=== PATIENT | male | born 1980 | race Caucasian/White ===

== ENCOUNTER 2016-10-29 09:32 | Inpatient (IN) | payer OTHER ==
--- NOTE | ~2016-10-29 | TEE ---
Transesophageal Echocardiogram [facility] [address] [place]. [address] NAME: DOTTIE MORALES : 80 STATUS : ADM IN PAT#: [id number] AGE: 36 ADM/REG DATE : 10/29/16 MR#: [id number] REPORT SERV DATE: 11/02/16 DICTATED BY: GENO NUNEZ DATE: 11/02/16 REPORT STATUS : Draft TRANSCRIBED BY: SAIGE DATE: 11/02/16 REFERRING REASON: Evaluation of cardiac valves in the setting of MRSA bacteremia and history of IV drug use with evidence of a septic emboli into the lungs. The risks and benefits of procedure were explained to the patient. He agreed to proceed. Vital signs were closely monitored during the procedure and remained stable. The patient was sedated with propofol per Anesthesia. MELYSSA probe was inserted on the first attempt without any difficulties. No complications. FINDINGS: 1. A small mobile echodensity measuring 0.7 cm attached around the tricuspid valve leaflets resembling vegetation. There is moderate tricuspid valve regurgitation with eccentric jet towards the atrial septum. 2. Prominent mildly mobile echodensity measuring in the long axis up to 2 cm, which seems to be attached to the area of the IVC likely representing a prominent eustachian valve. 3. Normal LV size and systolic function. Estimated ejection fraction of 55%. 4. Normal RV size and systolic function. 5. Mitral valve opens adequately without evidence of mobile echodensity with only trace regurgitation. Multiple views obtained. 6. Aortic valve is tricuspid with small Lambl's excrescence without clear evidence of vegetation. Trace aortic valve regurgitation present. 7. Tricuspid valve opens adequately with moderate regurgitation and eccentric jet. Mobile echodensity as described above noted. 8. Grossly normal pulmonic valve without evidence of regurgitation. 9. No evidence of left atrial or left atrial appendage thrombus. Multiple views obtained. Normal left atrial appendage outflow velocities noted. 10.Normally connected pulmonary veins with normal pulmonary vein flow. 11.No evidence of PFO by color Doppler. 12.Normal transgastric images revealing normal LV size and systolic function. 13.No evidence of atherosclerotic process in the descending or ascending aorta. 14.No evidence of pericardial effusion. CONCLUSION: 1. SMALL MOBILE ECHODENSITY MEASURING UP TO 0.7 CM ATTACHED TO THE TRICUSPID VALVE RESEMBLING VEGETATION WITH SOME MODERATE REGURGITATION. 2. PROMINENT ECHODENSITY ATTACHED TO THE IVC LIKELY RESEMBLING EUSTACHIAN VALVE ALSO NOTED. 3. NO CLEAR EVIDENCE OF MOBILE ECHODENSITIES RESEMBLING VEGETATION OR ANY OTHER CARDIAC VALVES. 4. NORMAL LV SIZE AND SYSTOLIC FUNCTION. 5. FINDINGS COMMUNICATED TO DR. BACH. GUILLERMO/SAIGE Geno Nunez M.D. Transesophageal Echocardiogram [address] [address] NAME: DOTTIE MORALES : 80 STATUS : ADM IN [facility]#: [id number] AGE: 36 ADM/REG DATE : 10/29/16 MR#: [id number] REPORT SERV DATE: 11/02/16 DICTATED BY: GENO NUNEZ DATE: 11/02/16 REPORT STATUS : Draft TRANSCRIBED BY: SAIGE DATE: 11/02/16 / [id number] CC: Richi Bach Jr., M.D.
--- NOTE | ~2016-10-29 | OP ---
Record Of Operation [facility] [address] [place]. [address] NAME: DOTTIE MORALES : 80 STATUS : ADM IN [facility]#: [id number] AGE: 36 ADM/REG DATE : 10/29/16 MR#: [id number] REPORT SERV DATE: 11/06/16 DICTATED BY: LALIT BACH JR. 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 NAME OF OPERATION: Therapeutic bronchoscopy, bronchoalveolar lavage right lung, left thoracoscopy with complete decortication, and intercostal nerve block. SURGEON: Dr. Lalit Bach. RESIDENT SURGEON: Dr. Mati Ko. NEEDLEMAKER: Noemy Ordoñez. ANESTHESIA: General endotracheal. FINDINGS: The patient was noted to have abundant mucous secretions that required therapeutic bronchoscopy. We sent a BAL from the right lung given that there was a lot of purulent material coming from this right lung. On thoracoscopy, we found a fairly trapped left lung. There was a loculated serosanguineous fluid collection in the lateral aspect of the chest. We were able to get this out and get the lung to re-expand. There was a lot of inflammation and bleeding within the chest cavity. Cultures were also sent from the pleural effusion. DETAILS OF OPERATION: After adequate general anesthesia, the patient was intubated. Bronchoscopy was performed noting the above findings. A therapeutic bronchoscopy was required. Bronchioalveolar lavage of the right lung was performed. Cultures were sent. The patient was then intubated with a left-sided double-lumen endotracheal tube. He was then positioned in the right lateral decubitus position where the left chest was prepped and draped in a routine sterile fashion. A small incision was made overlying the lower intercostal space. Through a single incision site, the above findings noted. We were able to get the pocket entered and the fluid evacuated. The chest was fairly inflamed. We had multiple liters of irrigation performed. Decortication was performed. We were able to get the lung to reasonably re-expand. We placed a 32-German chest tube posteriorly. Lung was reinflated. The trocar sites were closed with running Vicryl sutures. The skin was closed with running monofilament suture. A Dermabond dressing was applied and the procedure was terminated at this point. The patient tolerated the procedure well and was taken back to the recovery room in stable condition. Record Of Operation [place] [id number] [facility] [place]. [address] NAME: DOTTIE MORALES : 80 STATUS : ADM IN [facility]#: [id number] AGE: 36 ADM/REG DATE : 10/29/16 MR#: [id number] REPORT SERV DATE: 11/06/16 DICTATED BY: LALIT BACH JR. DATE: 11/06/16 REPORT STATUS : Draft TRANSCRIBED BY: SAIGE DATE: 11/06/16 FLAVIA/SAIGE Lalit Bach Jr., M.D. / [id number] CC: Odilon Hester Jr., M.D.
--- NOTE | ~2016-10-29 | CN ---
Consultation Report [facility] [address] [place]. [address] NAME: DOTTIE MORALES : 80 STATUS : ADM IN [facility]#: [id number] AGE: 36 ADM/REG DATE : 10/29/16 MR#: [id number] REPORT SERV DATE: 10/29/16 DICTATED BY: BREN LOPEZ DATE: 10/29/16 REPORT STATUS : Draft TRANSCRIBED BY: MODL DATE: 10/29/16 INFECTIOUS DISEASE CONSULTATION DATE OF CONSULTATION: REASON FOR REFERRAL: Evaluation and treatment of MRSA sepsis. HISTORY OF PRESENT ILLNESS: The patient is a 36-year-old male, who has a history of pancreatitis, hepatitis C, a history of IV drug abuse most recently with crystal meth, he says that his last time of injecting himself was two weeks ago. Just over a week ago, he began feeling ill with malaise, abdominal pain that became increasingly severe and in retrospect, was likely some pleuritic chest pain that was being referred into his abdomen. At that time, he was initially seen in the emergency room in [place]. He was not complaining of any fevers. He was treated symptomatically, but came back and was admitted since he appeared more toxic on 10/23. Cultures were taken. He was found to have blood cultures positive for gram-positive cocci and so vancomycin was begun. It proved to be methicillin-resistant Staph aureus on the cultures, two of two positive. He also had a CT scan of his chest that showed multiple bilateral infiltrates, suggestive of septic emboli. A transthoracic echocardiogram did not show any obvious valvular lesions, but right side of the heart was not visualized well. He was transferred here for further care. His imaging has also revealed a pleural effusion on the right side and a possible empyema. PAST MEDICAL HISTORY: Otherwise, unremarkable. MEDICATIONS: He is on vancomycin. ALLERGIES: HE HAS NO KNOWN ANTIMICROBIAL ALLERGIES. SOCIAL HISTORY: He is unemployed, using drugs as previously mentioned. Previously smoked, but has stopped and now chews tobacco. FAMILY HISTORY: Noncontributory. PHYSICAL EXAMINATION: GENERAL: He is groggy with pain medicine, but moaning in pain when he is awakened throughout the interview, but was able to wake up enough to answer questions for me. He is oriented. VITAL SIGNS: Temperature here 97.6 at present with a pulse of 101, respirations 16, blood pressure 135/84, weight 115 kg. HEENT: Sclerae clear. No oral lesions. NECK: Supple. LUNGS: There are scattered crackles heard across all lung matthews. HEART: Regular rate and rhythm. Difficult to hear heart sounds. With the patient's moaning, it was difficult to appreciate murmurs. Consultation Report [place] [id number] [place]. [address] NAME: DOTTIE MORALES : 80 STATUS : ADM IN PAT#: [id number] AGE: 36 ADM/REG DATE : 10/29/16 MR#: [id number] REPORT SERV DATE: 10/29/16 DICTATED BY: BREN LOPEZ DATE: 10/29/16 REPORT STATUS : Draft TRANSCRIBED BY: SAIGE DATE: 10/29/16 ABDOMEN: Soft. There is tenderness in the right upper quadrant without guarding or rebound. Positive bowel sounds were heard. MUSCULOSKELETAL: There is no focal tenderness with palpation up and down his spine. EXTREMITIES: Without clubbing, cyanosis, or edema. No swollen, red, or hot joints. No evidence of peripheral emboli. No rashes noted. No abscesses at old injection sites that were obvious on his arms. LABORATORY DATA: At [facility] this morning showed a white blood cell count of 15.1, he had a white count previous to that as high as 21.8 on 10/25; the hematocrit earlier today at 30.7; platelets 289; 79 segs and 2 bands on the differential. His BUN and creatinine were 85 and 3.35. Blood cultures as previously mentioned. IMPRESSION: Methicillin-resistant Staph aureus sepsis with IV drug abuse as the source. At this point, based on the CT scan of his chest, I suspect it is right-sided endocarditis and he has multiple septic emboli to his lungs and perhaps an empyema as well. RECOMMENDATIONS: 1. Continue vancomycin, the dose will have to be adjusted for renal failure. 2. I will likely need a transesophageal echocardiogram. 3. He may need a decortication if he truly has an empyema on the right. CV Surgery is the service that he is on, they will be evaluating and deciding on this. 4. Finally, I will follow the patient with you. I appreciate very much your consulting on this patient. DIAMOND Bren Lopez M.D. / [id number] CC: Richi Bach Jr., M.D.
--- NOTE | ~2016-10-29 | HP ---
History And Physical [facility] [facility] [id number] [place]. [address] NAME: DOTTIE MORALES : 80 STATUS : ADM IN [facility]#: [id number] AGE: 36 ADM/REG DATE : 10/29/16 MR#: [id number] REPORT SERV DATE: 10/31/16 DICTATED BY: LALIT YOUNG JR. DATE: 10/31/16 REPORT STATUS : Draft TRANSCRIBED BY: MODL DATE: 10/31/16 DATE OF ADMISSION: 10/29/2016 REASON FOR ADMISSION: MRSA sepsis with right pleural effusion with possible empyema. BRIEF HISTORY: This is a 36-year-old male with a history of hepatitis C, pancreatitis, and IV drug abuse, most recently as methamphetamine. He reports that, his last incidents of injection was approximately two weeks ago. Approximately two weeks ago, he began feeling ill with fatigue, pleuritic chest pain, and abdominal pain, and he presented to the emergency department at [facility] in [place]. He is admitted to the hospital and blood cultures are positive for MRSA and he was began on vancomycin. A CT of the chest at that facility showed multiple bilateral infiltrates, a right pleural effusion, and evidence of septic emboli. A transthoracic echocardiogram did not visualize the right side of the heart adequately, but did not show any obvious valvular vegetation. Given his right pleural effusion and his positive blood cultures, we are asked to accept transfer of the patient for possible right thoracoscopy with decortication. PAST MEDICAL HISTORY: Significant for hepatitis C and IV drug abuse. MEDICATIONS: On transfer include clozapine 1 mg twice a day, Lovenox 40 mg subcu daily, Pepcid 40 mg p.o. daily, vancomycin per pharmacy, albuterol inhaler as needed every six hours, hydrocodone 10/325 mg one tablet every four hours as needed, hydromorphone 1 mg IV every four hours as needed, Zofran 4 mg IV every eight hours as needed. ALLERGIES: NO KNOWN DRUG ALLERGIES. SOCIAL HISTORY: The patient is unemployed and has a history of IV drug abuse, most recently for methamphetamines, and he has a past smoking history of one pack per day for approximately ten years. He continues to use marijuana and chewing tobacco. He drinks one to two times per month. FAMILY HISTORY: Significant for father who from myocardial infarction. Mother with cirrhosis, fibromyalgia, and depression. PAST SURGICAL HISTORY: No known surgical history. REVIEW OF SYSTEMS: Significant for right-sided pleuritic pain and shortness of breath as well as fatigue. A complete 12 point review of systems was performed. All other systems negative except for the above mentioned pertinent positives in the history of present illness. PHYSICAL EXAMINATION: VITAL SIGNS: Temperature 99.2, blood pressure 110/60, 94% on room air, heart rate 110, weight 117 kg, height 6 feet 4 inches. GENERAL: This is a 36-year-old white male, who is alert and oriented. No acute distress. HEENT: Normocephalic, atraumatic. Pupils are equal, round, and reactive to light. Ears, History And Physical [address] [place]. [address] NAME: DOTTIE MORALES : 80 STATUS : ADM IN [facility]#: [id number] AGE: 36 ADM/REG DATE : 10/29/16 MR#: [id number] REPORT SERV DATE: 10/31/16 DICTATED BY: LALIT YOUNG JR. DATE: 10/31/16 REPORT STATUS : Draft TRANSCRIBED BY: SAIGE DATE: 10/31/16 nose, and throat without lesions or exudate. NECK: Supple with no lymphadenopathy, JVD, or bruits. Trachea midline. No goiter. CHEST: Symmetrical with no obvious chest wall deformities. CARDIOVASCULAR: Regular rate and rhythm. S1 and S2. No murmurs or gallops. RESPIRATORY: Decreased breath sounds bilaterally, greater on the right. Expiratory wheezes and scattered rhonchi. ABDOMEN: Obese, soft, nontender. Positive bowel sounds in all four quadrants. No hepatosplenomegaly. : The patient voids without difficulty. Further examination was deferred. MUSCULOSKELETAL: No obvious kyphosis or scoliosis. EXTREMITIES: No cyanosis or edema. 2+ pulses bilaterally. SKIN: Warm and dry with normal turgor. No obvious breakdown lesions noted. PSYCHIATRIC: Normal mood and affect. He is pleasant. NEUROLOGIC: No focal neurological deficits. DATA: Laboratories dated 10/26/2016 showing white blood cell count of 15, hemoglobin 12.2, hematocrit 37.6, platelet count 196. Sodium 128, potassium 3.7, creatinine 2.08, BUN 35, calcium 7.5. Blood cultures positive for gram-positive cocci in clusters x2. CT of the abdomen showing hepatosplenomegaly, bilateral nephrolithiasis, and a small mid lateral left renal cyst. Mid kidneys otherwise were unremarkable without evidence of hydronephrosis or acute pyelonephritis. There is no evidence of mass, adenopathy, free fluid, or bowel obstruction on renal ultrasound, mild 3 cm mid lateral left renal cyst with septation, the kidneys are otherwise unremarkable without evidence of hydronephrosis. Transthoracic echocardiogram showing normal left ventricular systolic function, normal left ventricular cavity size, mild concentric left ventricular hypertrophy, ejection fraction of 66%, tricuspid valve is not well visualized. Right ventricular systolic pressure is consistent with mild pulmonary hypertension with a peak of 31 mmHg. Tricuspid valve appears mildly thickened and redundant. There is [id number] tricuspid regurg, normal appearance, and function of the mitral valve, normal appearance and function of the aortic valve, no significant aortic stenosis. CT of the chest showing multiple bilateral lung nodules, nonspecific, possibly septic emboli versus metastasis, extensive near complete consolidation of the left lower lobe suggestive of atelectasis. PROBLEM LIST: 1. MRSA sepsis. 2. Loculated left pleural effusion, small right pleural effusion, history of IV drug abuse, history of tobacco abuse, hepatitis C, acute kidney injury. IMPRESSION AND PLAN: This is a 36-year-old white male, with MRSA sepsis and left loculated pleural effusion, history of IV drug abuse as well as hepatitis C. He was transferred for possible decortication and given his worsening renal function. We will plan to have a left pigtail catheter placed with drainage of the left pleural effusion and send that for cultures. We will then treat the left-sided loculation with lytic therapy. I discussed this plan with the patient and he is in agreement. We will have Interventional Radiology place a pigtail catheter early this week. We will also have renal and ID to see the patient. History And Physical [address] [place]. [address] NAME: DOTTIE MORALES MARISSA : 80 STATUS : ADM IN [facility]#: [id number] AGE: 36 ADM/REG DATE : 10/29/16 MR#: [id number] REPORT SERV DATE: 10/31/16 DICTATED BY: LALIT YOUNG JR. DATE: 10/31/16 REPORT STATUS : Draft TRANSCRIBED BY: SAIGE DATE: 10/31/16 DICTATED BY: Payton Rosas NP AM/MODL Lalit Young Jr., M.D. / [id number] CC: Lalit Young Jr., M.D.
--- NOTE | ~2016-10-29 | DS ---
Discharge Summary [facility] [address] [place]. [address] NAME: DOTTIE MORALES : 80 STATUS : DIS IN PAT#: [id number] AGE: 36 ADM/REG DATE : 10/29/16 MR#: [id number] REPORT SERV DATE: 11/22/16 DICTATED BY: LALIT BACH JR. DATE: 11/21/16 REPORT STATUS : Draft TRANSCRIBED BY: SAIGE DATE: 11/21/16 Data Collection from hospitalization DISCHARGE DIAGNOSES: 1. IV drug abuse with sepsis. 2. 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 3. Left parapneumonic effusion versus empyema. 4. Anemia of chronic disease. 5. Stage 2 chronic kidney disease. 6. Chronic pain syndrome. 7. Hepatitis C. 8. Former smoker. 9. Marijuana use. CONSULTATIONS: Wong Brown M.D.; Tristin Rivera M.D.; and Vish Ferrari M.D. PROCEDURES: 1. Therapeutic bronchoscopy and bronchoalveolar lavage, right lung; left thoracoscopy with complete decortication and intercostal nerve block, 11/06/2016. 2. CT scan of the chest without contrast, 10/30/2016. 3. CT-guided placement of left pigtail chest tube, 10/31/2016. 4. CT scan of the chest without contrast, 11/03/2016. DISCHARGE MEDICATIONS: Klonopin 1 mg twice a day, Patricia 20 mg daily, Roxicodone 15 mg every four to six hours as needed, Demadex 40 mg daily, and vancomycin 1500 mg IV every 24 hours as instructed. He was instructed not to continue ibuprofen, Zofran, or Bactrim DS. CONDITION AT DISCHARGE: Stable. DISPOSITION: The patient was discharged home to be followed by home health care on a low- sodium, renal diet with activities as instructed. He would follow up with me on 12/04/2016. He would follow up with his primary care provider as needed. HOSPITAL COURSE: This is a 36-year-old man, who has a history of hepatitis C, pancreatitis, and IV drug abuse, most recently methamphetamine. He reports that his last incident of injection was approximately two weeks prior to this admission. Approximately two weeks prior to this admission, he began to feel ill with fatigue and pleuritic chest pain as well as abdominal pain. He presented to the emergency room at [facility]. He was admitted to the hospital, and blood cultures were positive for MRSA, and he was started on vancomycin. A CT scan of the chest at that facility showed multiple bilateral infiltrates and right pleural effusion as well as evidence of septic emboli. Transthoracic echocardiogram did not visualize the right side of the heart adequately and did not show any obvious valvular vegetation. Given his right pleural effusion and his positive blood cultures, we were asked to accept transfer of the patient for possible right thoracoscopy with decortication. He was transferred here and admitted for further evaluation and treatment. Upon admission, creatinine level was 2.08. Blood cultures were positive for gram-positive Discharge Summary [id number] [place]. [address] NAME: DOTTIE MORALES : 80 STATUS : DIS IN [facility]#: [id number] AGE: 36 ADM/REG DATE : 10/29/16 MR#: [id number] REPORT SERV DATE: 11/22/16 DICTATED BY: LALIT BACH JR. DATE: 11/21/16 REPORT STATUS : Draft TRANSCRIBED BY: SAIGE DATE: 11/21/16 cocci in clusters. White count was 15. CT scan of the abdomen had shown hepatosplenomegaly, bilateral nephrolithiasis, and small mid lateral left renal cyst. Mid kidneys, otherwise, were unremarkable without evidence of hydronephrosis or acute pyelonephritis. There was no evidence of mass, adenopathy, free fluid, or bowel obstruction on renal ultrasound. There was mild 3 cm mid lateral left renal cyst with septation. There was no evidence of hydronephrosis. It was felt that he would need to have a left pigtail catheter placed with drainage of a left pleural effusion. This would be sent for cultures. We would then treat the left-sided loculation with lytic therapy. He was seen by Dr. Wong Brown for evaluation and treatment of MRSA sepsis. His impression included methicillin- resistant Staph aureus sepsis with IV drug abuse as the source. It was suspected based on the CT scan of his chest that this was right-sided endocarditis and he had multiple septic emboli to his lungs and perhaps empyema as well. Vancomycin was continued. The dose would be adjusted for renal failure. It was felt that he would likely need transesophageal echocardiogram. He may need decortication if he truly has empyema on the right. The following day, a CT scan of the chest without contrast was performed. He was very lethargic but did complain of pain. White count was 13. The cultures here thus far were negative. Vancomycin was continued. His CT scan showed a small right effusion and left moderate effusion with some loculations. There were multiple septic emboli throughout both lungs. The patient was seen by Dr. Tristin Rivera. The patient was complaining of pain. Creatinine level was 3.19. He had decreased urine output. Bumex was given. It was felt that he may need hemodialysis in the next 24 to 48 hours if there was no improvement in urine output. On 10/31/2016, he complained of abdominal discomfort. Creatinine had decreased to 2.82. White count was 10.1. The patient underwent a CT-guided placement of left pigtail chest tube. 10 mL of serous fluid was aspirated. On 11/01/2016, he had no shortness of breath. He was very groggy. We were hopeful that we could avoid hemodialysis. The patient was seen by Dr. Vish Ferrari who then asked to perform valve evaluation in the setting of MRSA bacteremia with septic emboli. O2 saturation was 97% on room air. Transesophageal echocardiogram was performed. There was a small mobile echodensity measuring up to 0.7 cm attached to the tricuspid valve resembling vegetation with some moderate regurgitation. There was a prominent echodensity attached to the IVC, likely resembling eustachian valve, but vegetation could not be excluded. There was no clear evidence of mobile echodensities resembling vegetation or any other cardiac valve. There was normal LV size and systolic function. On 11/03/2016, a CT scan of the chest without contrast was performed. On 11/04/2016, his blood pressure was elevated. Vancomycin was continued. Plans were being made to proceed with surgical intervention. He said he felt terrible. He continued to state he was hungry. On 11/06/2016, he said he was feeling better. He was afebrile. Pleural fluid culture was negative. IV vancomycin continued. He was taken to the operating room where he underwent the above-mentioned procedure. He tolerated this well. There were no complications. On postop day one, cultures were pending. His vancomycin dose was increased. He had decreased breath sounds in the lungs. White count was 7.9. On 11/08/2016, his O2 saturation remained 97% on room air. We discussed with the patient his need for several weeks of antibiotics. The patient said he had two places to stay and would sign a contract not to use drugs. He is going to be transitioned from IV narcotics to long-acting oral medications. He did appear more comfortable. It was felt that he would probably need four Discharge Summary [address] [address] NAME: DOTTIE MORALES : 80 STATUS : DIS IN PAT#: [id number] AGE: 36 ADM/REG DATE : 10/29/16 MR#: [id number] REPORT SERV DATE: 11/22/16 DICTATED BY: LALIT BACH JR. DATE: 11/21/16 REPORT STATUS : Draft TRANSCRIBED BY: SAIGE DATE: 11/21/16 weeks of antibiotics after discharge. Chest tube was still in place. He remained afebrile. Discharge planning continued. A new PICC line was inserted. On 11/10/2016, his lungs were clear. He did have some generalized edema. Chest tube was removed. Kayexalate was given. He had no new complaints. White count was 6.7. Discharge instructions were given. Due to his improved and stable condition, he was discharged home to be followed by home health care with the above-stated instructions. Information collected by: Deborah Hough I submit the above information as my discharge summary. RICARDO/SAIGE Lalit Bach Jr., M.D. / [id number] CC: Odilon Hester Jr., M.D. Claude Galphin, M.D. Ondrej J Lisy, M.D.
[2016-10-29] MEDS ORDERED: IBU800 PO (10:11)
[2016-10-29] MEDS ORDERED: BACTRIM DS1 TAB PO (10:11)
[2016-10-29] MEDS ORDERED: ZOFRAN4 PO (10:12)
[2016-10-29] MEDS ORDERED: KLONO1 PO (10:12)
[2016-10-30 04:58] LABS: HEMATOCRIT 30.4 % (40.0-51.0); HEMOGLOBIN 10.4 g/dL (13.6-17.8); MEAN CORPUS HGB CONC 34.2 g/dL (32.0-36.0); MEAN CORPUSCULAR HEMOGLOB 28.5 pg (26.0-34.0); MEAN CORPUSCULAR VOLUME 83.3 fL (80-100); MEAN PLATELET VOLUME 8.5 fL (9.2-13.0); PLATELET COUNT 276 10/3/uL (150-400); RBC DISTRIBUTION WIDTH 14.6 % (12.0-16.0); RED CELL COUNT 3.65 10/6/uL (4.7-6.1)
[2016-10-30 04:59] LABS: MANUAL DIFF YES %
[2016-10-30 05:25] LABS: CALCIUM, SERUM 7.5 MG/DL (8.5-10.4); CHLORIDE, SERUM 93 MMOL/L (96-112); CO2 (CARBON DIOXIDE) 16 MMOL/L (24-34); CREATININE 3.19 MG/DL (0.70-1.30); GFR AFRICAN AMERICAN 27 ML/MIN (>=60); GFR NON AFRICAN AMERICAN 24 ML/MIN (>=60); GLUCOSE, SERUM 78 MG/DL (60-99); POTASSIUM, SERUM 5.2 MMOL/L (3.5-5.3); SODIUM, SERUM 125 MMOL/L (135-148)
[2016-10-30 05:30] LABS: BUN (BLOOD UREA NITROGEN) 101 MG/DL (6-23)
[2016-10-30 06:23] LABS: BAND NEUTROPHILS 6 %; BASOPHILS 1 %; BASOPHILS ABSOLUTE (CALC) 0.13 10/3/uL (0.0-0.16); EOSINOPHILS 1 %; EOSINOPHILS ABSOLUTE (CALC) 0.13 10/3/uL (0.0-0.53); IMMATURE GRANS ABSOLUTE (CALC) 0.26 10/3/uL (0.0-0.11); LYMPHOCYTES 14 %; LYMPHOCYTES ABSOLUTE (CALC) 1.82 10/3/uL (0.67-4.30); METAMYELOCYTES 2 %; MONOCYTES 1 %; MONOCYTES ABSOLUTE (CALC) 0.13 10/3/uL (0.21-1.20); NEUTROPHILS ABSOLUTE (CALC) 10.53 10/3/uL (2.02-8.40); SEGMENTED NEUTROPHIL (0) 75 %; TOTAL NUCLEATED CELLS 100
[2016-10-30 06:24] LABS: PLATELET ESTIMATE ADQ (ADEQUATE)
[2016-10-30 06:25] LABS: RBC MORPHOLOGY NORM (NORMAL)
[2016-10-31 06:08] LABS: HEMATOCRIT 29.9 % (40.0-51.0); HEMOGLOBIN 10.3 g/dL (13.6-17.8); MEAN CORPUS HGB CONC 34.4 g/dL (32.0-36.0); MEAN CORPUSCULAR HEMOGLOB 28.3 pg (26.0-34.0); MEAN CORPUSCULAR VOLUME 82.1 fL (80-100); MEAN PLATELET VOLUME 8.5 fL (9.2-13.0); PLATELET COUNT 303 10/3/uL (150-400); RBC DISTRIBUTION WIDTH 14.3 % (12.0-16.0); RED CELL COUNT 3.64 10/6/uL (4.7-6.1); WHITE BLOOD CELLS 10.1 10/3/uL (4.5-10.5)
[2016-10-31 06:10] LABS: MANUAL DIFF YES %
[2016-10-31 06:14] LABS: INTERNATIONAL NORMAL RATI 1.4 UNITS (-); PROTIME (NOT ORD) 16.8 SEC (12.0-14.5)
[2016-10-31 06:31] LABS: ALBUMIN 1.4 G/DL (3.5-5.0); BAND NEUTROPHILS 12 %; CALCIUM, SERUM 7.5 MG/DL (8.5-10.4); CHLORIDE, SERUM 94 MMOL/L (96-112); CREATININE 2.82 MG/DL (0.70-1.30); EOSINOPHILS 1 %; GFR AFRICAN AMERICAN 32 ML/MIN (>=60); GFR NON AFRICAN AMERICAN 28 ML/MIN (>=60); GLUCOSE, SERUM 84 MG/DL (60-99); LYMPHOCYTES 11 %; LYMPHOCYTES ABSOLUTE (CALC) 1.11 10/3/uL (0.67-4.30); METAMYELOCYTES 1 %; MONOCYTES 5 %; MONOCYTES ABSOLUTE (CALC) 0.51 10/3/uL (0.21-1.20); NEUTROPHILS ABSOLUTE (CALC) 8.28 10/3/uL (2.02-8.40); PHOSPHORUS, SERUM 7.9 MG/DL (2.5-4.5); PLATELET ESTIMATE ADQ (ADEQUATE); POTASSIUM, SERUM 5.6 MMOL/L (3.5-5.3); RBC MORPHOLOGY NORM (NORMAL); SEGMENTED NEUTROPHIL (0) 70 %; SODIUM, SERUM 126 MMOL/L (135-148); TOTAL NUCLEATED CELLS 100; TOXIC GRANULATION 1+
[2016-10-31 06:32] LABS: BUN (BLOOD UREA NITROGEN) 107 MG/DL (6-23); CO2 (CARBON DIOXIDE) 21 MMOL/L (24-34)
[2016-11-01 06:02] LABS: HEMATOCRIT 29.2 % (40.0-51.0); HEMOGLOBIN 10.1 g/dL (13.6-17.8); MEAN CORPUS HGB CONC 34.6 g/dL (32.0-36.0); MEAN CORPUSCULAR HEMOGLOB 28.7 pg (26.0-34.0); MEAN PLATELET VOLUME 8.3 fL (9.2-13.0); PLATELET COUNT 332 10/3/uL (150-400); RBC DISTRIBUTION WIDTH 14.5 % (12.0-16.0); RED CELL COUNT 3.52 10/6/uL (4.7-6.1); WHITE BLOOD CELLS 8.3 10/3/uL (4.5-10.5)
[2016-11-01 06:09] LABS: MANUAL DIFF YES %
[2016-11-01 06:13] LABS: ALBUMIN 1.4 G/DL (3.5-5.0); BUN (BLOOD UREA NITROGEN) 109 MG/DL (6-23); CALCIUM, SERUM 7.5 MG/DL (8.5-10.4); CHLORIDE, SERUM 96 MMOL/L (96-112); CO2 (CARBON DIOXIDE) 21 MMOL/L (24-34); CREATININE 2.69 MG/DL (0.70-1.30); GFR AFRICAN AMERICAN 34 ML/MIN (>=60); GFR NON AFRICAN AMERICAN 29 ML/MIN (>=60); GLUCOSE, SERUM 121 MG/DL (60-99); PHOSPHORUS, SERUM 8.3 MG/DL (2.5-4.5); SODIUM, SERUM 126 MMOL/L (135-148)
[2016-11-01 07:22] LABS: EOSINOPHILS 1 %; EOSINOPHILS ABSOLUTE (CALC) 0.08 10/3/uL (0.0-0.53); LYMPHOCYTES 18 %; LYMPHOCYTES ABSOLUTE (CALC) 1.49 10/3/uL (0.67-4.30); MONOCYTES 7 %; MONOCYTES ABSOLUTE (CALC) 0.58 10/3/uL (0.21-1.20); NEUTROPHILS ABSOLUTE (CALC) 6.14 10/3/uL (2.02-8.40); SEGMENTED NEUTROPHIL (0) 74 %; TOTAL NUCLEATED CELLS 100
[2016-11-01 07:23] LABS: PLATELET ESTIMATE ADQ (ADEQUATE); RBC MORPHOLOGY NORM (NORMAL)
[2016-11-01 17:22] LABS: ALBUMIN 1.3 G/DL (3.5-5.0); CALCIUM, SERUM 7.5 MG/DL (8.5-10.4); CHLORIDE, SERUM 94 MMOL/L (96-112); CO2 (CARBON DIOXIDE) 22 MMOL/L (24-34); CREATININE 2.53 MG/DL (0.70-1.30); GFR AFRICAN AMERICAN 36 ML/MIN (>=60); GFR NON AFRICAN AMERICAN 31 ML/MIN (>=60); GLUCOSE, SERUM 107 MG/DL (60-99); PHOSPHORUS, SERUM 8.5 MG/DL (2.5-4.5); SODIUM, SERUM 126 MMOL/L (135-148)
[2016-11-01 17:24] LABS: BUN (BLOOD UREA NITROGEN) 112 MG/DL (6-23); POTASSIUM, SERUM 6.5 MMOL/L (3.5-5.3)
[2016-11-02 01:33] LABS: HEMATOCRIT 29.6 % (40.0-51.0); HEMOGLOBIN 10.3 g/dL (13.6-17.8); MEAN CORPUS HGB CONC 34.8 g/dL (32.0-36.0); MEAN CORPUSCULAR HEMOGLOB 28.7 pg (26.0-34.0); MEAN CORPUSCULAR VOLUME 82.5 fL (80-100); MEAN PLATELET VOLUME 8.3 fL (9.2-13.0); PLATELET COUNT 338 10/3/uL (150-400); RED CELL COUNT 3.59 10/6/uL (4.7-6.1); WHITE BLOOD CELLS 5.7 10/3/uL (4.5-10.5)
[2016-11-02 01:39] LABS: INTERNATIONAL NORMAL RATI 1.3 UNITS (-); MANUAL DIFF YES %; PROTIME (NOT ORD) 16.3 SEC (12.0-14.5)
[2016-11-02 02:00] LABS: ALBUMIN 1.3 G/DL (3.5-5.0); CALCIUM, SERUM 7.5 MG/DL (8.5-10.4); CHLORIDE, SERUM 99 MMOL/L (96-112); CO2 (CARBON DIOXIDE) 22 MMOL/L (24-34); CREATININE 2.16 MG/DL (0.70-1.30); GFR AFRICAN AMERICAN 44 ML/MIN (>=60); GFR NON AFRICAN AMERICAN 38 ML/MIN (>=60); GLUCOSE, SERUM 102 MG/DL (60-99); PHOSPHORUS, SERUM 7.9 MG/DL (2.5-4.5); POTASSIUM, SERUM 5.8 MMOL/L (3.5-5.3); PREALBUMIN 10.5 MG/DL (17.0-43.0); SODIUM, SERUM 132 MMOL/L (135-148)
[2016-11-02 02:01] LABS: BUN (BLOOD UREA NITROGEN) 110 MG/DL (6-23)
[2016-11-02 02:24] LABS: EOSINOPHILS 2 %; EOSINOPHILS ABSOLUTE (CALC) 0.11 10/3/uL (0.0-0.53); IMMATURE GRANS ABSOLUTE (CALC) 0.06 10/3/uL (0.0-0.11); LYMPHOCYTES 19 %; LYMPHOCYTES ABSOLUTE (CALC) 1.08 10/3/uL (0.67-4.30); METAMYELOCYTES 1 %; MONOCYTES 3 %; MONOCYTES ABSOLUTE (CALC) 0.17 10/3/uL (0.21-1.20); NEUTROPHILS ABSOLUTE (CALC) 4.28 10/3/uL (2.02-8.40); PLATELET ESTIMATE ADQ (ADEQUATE); SEGMENTED NEUTROPHIL (0) 75 %; TOTAL NUCLEATED CELLS 100
[2016-11-02 02:25] LABS: RBC MORPHOLOGY NORM (NORMAL); TOXIC GRANULATION 1+
[2016-11-02 13:16] LABS: CALCIUM, SERUM 7.3 MG/DL (8.5-10.4); CHLORIDE, SERUM 99 MMOL/L (96-112); CO2 (CARBON DIOXIDE) 24 MMOL/L (24-34); CREATININE 1.72 MG/DL (0.70-1.30); GFR AFRICAN AMERICAN 58 ML/MIN (>=60); GFR NON AFRICAN AMERICAN 50 ML/MIN (>=60); GLUCOSE, SERUM 100 MG/DL (60-99); POTASSIUM, SERUM 5.8 MMOL/L (3.5-5.3); SODIUM, SERUM 134 MMOL/L (135-148)
[2016-11-02 13:17] LABS: BUN (BLOOD UREA NITROGEN) 112 MG/DL (6-23)
[2016-11-02 16:05] LABS: BUN (BLOOD UREA NITROGEN) 103 MG/DL (6-23); CALCIUM, SERUM 7.7 MG/DL (8.5-10.4); CHLORIDE, SERUM 101 MMOL/L (96-112); CO2 (CARBON DIOXIDE) 24 MMOL/L (24-34); CREATININE 1.67 MG/DL (0.70-1.30); GFR AFRICAN AMERICAN 60 ML/MIN (>=60); GFR NON AFRICAN AMERICAN 52 ML/MIN (>=60); GLUCOSE, SERUM 114 MG/DL (60-99); POTASSIUM, SERUM 5.7 MMOL/L (3.5-5.3); SODIUM, SERUM 133 MMOL/L (135-148)
[2016-11-03 06:40] LABS: BASOPHILS 0.7 %; BASOPHILS ABSOLUTE 0.05 10/3/uL (0.0-0.16); EOSINOPHILS 1.1 %; EOSINOPHILS ABSOLUTE 0.08 10/3/uL (0.0-0.53); HEMATOCRIT 30.9 % (40.0-51.0); HEMOGLOBIN 10.4 g/dL (13.6-17.8); IMMATURE GRANULOCYTES 0.8 %; IMMATURE GRANULOCYTES ABSOLUTE 0.06 10/3/uL (0.0-0.11); LYMPHOCYTES 19.5 %; LYMPHOCYTES ABSOLUTE 1.45 10/3/uL (0.67-4.30); MEAN CORPUS HGB CONC 33.7 g/dL (32.0-36.0); MEAN CORPUSCULAR HEMOGLOB 28.6 pg (26.0-34.0); MEAN CORPUSCULAR VOLUME 84.9 fL (80-100); MEAN PLATELET VOLUME 8.1 fL (9.2-13.0); MONOCYTES 4.7 %; MONOCYTES ABSOLUTE 0.35 10/3/uL (0.21-1.20); NEUTROPHILS 73.2 %; NEUTROPHILS ABSOLUTE 5.43 10/3/uL (2.02-8.40); PLATELET COUNT 399 10/3/uL (150-400); RBC DISTRIBUTION WIDTH 14.3 % (12.0-16.0); RED CELL COUNT 3.64 10/6/uL (4.7-6.1); WHITE BLOOD CELLS 7.4 10/3/uL (4.5-10.5)
[2016-11-03 06:49] LABS: MANUAL DIFF NO %
[2016-11-03 07:02] LABS: CALCIUM, SERUM 7.7 MG/DL (8.5-10.4); CHLORIDE, SERUM 100 MMOL/L (96-112); CO2 (CARBON DIOXIDE) 23 MMOL/L (24-34); CREATININE 1.62 MG/DL (0.70-1.30); GFR AFRICAN AMERICAN 62 ML/MIN (>=60); GFR NON AFRICAN AMERICAN 54 ML/MIN (>=60); GLUCOSE, SERUM 94 MG/DL (60-99); SODIUM, SERUM 133 MMOL/L (135-148)
[2016-11-03 07:05] LABS: BUN (BLOOD UREA NITROGEN) 106 MG/DL (6-23); PHOSPHORUS, SERUM 6.3 MG/DL (2.5-4.5)
[2016-11-03 13:50] LABS: VANCOMYCIN TROUGH 20.5 MCG/ML (10.0-20.0)
[2016-11-03 14:32] LABS: ALBUMIN 1.5 G/DL (3.5-5.0); BUN (BLOOD UREA NITROGEN) 101 MG/DL (6-23); CALCIUM, SERUM 8.2 MG/DL (8.5-10.4); CHLORIDE, SERUM 100 MMOL/L (96-112); CO2 (CARBON DIOXIDE) 25 MMOL/L (24-34); CREATININE 1.79 MG/DL (0.70-1.30); GFR AFRICAN AMERICAN 55 ML/MIN (>=60); GFR NON AFRICAN AMERICAN 48 ML/MIN (>=60); GLUCOSE, SERUM 99 MG/DL (60-99); PHOSPHORUS, SERUM 7.1 MG/DL (2.5-4.5); POTASSIUM, SERUM 5.8 MMOL/L (3.5-5.3); SODIUM, SERUM 134 MMOL/L (135-148)
[2016-11-04 05:43] LABS: HEMOGLOBIN 9.7 g/dL (13.6-17.8); MANUAL DIFF YES %; MEAN CORPUS HGB CONC 33.4 g/dL (32.0-36.0); MEAN CORPUSCULAR HEMOGLOB 28.8 pg (26.0-34.0); MEAN CORPUSCULAR VOLUME 86.1 fL (80-100); MEAN PLATELET VOLUME 7.7 fL (9.2-13.0); PLATELET COUNT 341 10/3/uL (150-400); RBC DISTRIBUTION WIDTH 14.4 % (12.0-16.0); RED CELL COUNT 3.37 10/6/uL (4.7-6.1); WHITE BLOOD CELLS 5.7 10/3/uL (4.5-10.5)
[2016-11-04 05:49] LABS: ALBUMIN 1.4 G/DL (3.5-5.0); CALCIUM, SERUM 7.7 MG/DL (8.5-10.4); CHLORIDE, SERUM 101 MMOL/L (96-112); CO2 (CARBON DIOXIDE) 26 MMOL/L (24-34); CREATININE 1.66 MG/DL (0.70-1.30); GFR AFRICAN AMERICAN 61 ML/MIN (>=60); GFR NON AFRICAN AMERICAN 52 ML/MIN (>=60); PHOSPHORUS, SERUM 6.5 MG/DL (2.5-4.5); POTASSIUM, SERUM 5.4 MMOL/L (3.5-5.3); SODIUM, SERUM 136 MMOL/L (135-148)
[2016-11-04 05:50] LABS: BUN (BLOOD UREA NITROGEN) 96 MG/DL (6-23); GLUCOSE, SERUM 131 MG/DL (60-99)
[2016-11-04 06:44] LABS: BAND NEUTROPHILS 1 %; LYMPHOCYTES 24 %; LYMPHOCYTES ABSOLUTE (CALC) 1.37 10/3/uL (0.67-4.30); MONOCYTES 5 %; MONOCYTES ABSOLUTE (CALC) 0.29 10/3/uL (0.21-1.20); NEUTROPHILS ABSOLUTE (CALC) 4.05 10/3/uL (2.02-8.40); PLATELET ESTIMATE ADQ (ADEQUATE); RBC MORPHOLOGY NORM (NORMAL); SEGMENTED NEUTROPHIL (0) 70 %; TOTAL NUCLEATED CELLS 100
[2016-11-06 06:00] LABS: A/G RATIO 0.3 (0.7-1.9); ALBUMIN 1.6 G/DL (3.5-5.0); ALKALINE PHOSPHATASE 115 U/L (45-117); BUN (BLOOD UREA NITROGEN) 77 MG/DL (6-23); CALCIUM, SERUM 8.1 MG/DL (8.5-10.4); CHLORIDE, SERUM 103 MMOL/L (96-112); CO2 (CARBON DIOXIDE) 27 MMOL/L (24-34); CREATININE 1.41 MG/DL (0.70-1.30); GFR AFRICAN AMERICAN 74 ML/MIN (>=60); GFR NON AFRICAN AMERICAN 64 ML/MIN (>=60); GLOBULIN 5.5 G/DL (2.5-4.1); GLUCOSE, SERUM 76 MG/DL (60-99); POTASSIUM, SERUM 5.3 MMOL/L (3.5-5.3); SGOT(AST) 23 U/L (5-40); SGPT(ALT) 19 U/L (5-65); SODIUM, SERUM 139 MMOL/L (135-148); TOTAL BILIRUBIN 0.2 MG/DL (0-1.2); TOTAL PROTEIN 7.1 G/DL (6.0-8.5)
[2016-11-06 06:34] LABS: INTERNATIONAL NORMAL RATI 1.2 UNITS (-); PROTIME (NOT ORD) 15.3 SEC (12.0-14.5)
[2016-11-06 07:22] LABS: BASOPHILS 1.2 %; BASOPHILS ABSOLUTE 0.07 10/3/uL (0.0-0.16); EOSINOPHILS 2.5 %; EOSINOPHILS ABSOLUTE 0.14 10/3/uL (0.0-0.53); HEMATOCRIT 28.6 % (40.0-51.0); HEMOGLOBIN 9.3 g/dL (13.6-17.8); IMMATURE GRANULOCYTES 0.7 %; IMMATURE GRANULOCYTES ABSOLUTE 0.04 10/3/uL (0.0-0.11); LYMPHOCYTES 37.3 %; LYMPHOCYTES ABSOLUTE 2.09 10/3/uL (0.67-4.30); MEAN CORPUS HGB CONC 32.5 g/dL (32.0-36.0); MEAN CORPUSCULAR HEMOGLOB 28.5 pg (26.0-34.0); MEAN CORPUSCULAR VOLUME 87.7 fL (80-100); MEAN PLATELET VOLUME 7.8 fL (9.2-13.0); MONOCYTES 7.3 %; MONOCYTES ABSOLUTE 0.41 10/3/uL (0.21-1.20); NEUTROPHILS ABSOLUTE 2.86 10/3/uL (2.02-8.40); PLATELET COUNT 300 10/3/uL (150-400); RBC DISTRIBUTION WIDTH 14.3 % (12.0-16.0); RED CELL COUNT 3.26 10/6/uL (4.7-6.1); WHITE BLOOD CELLS 5.6 10/3/uL (4.5-10.5)
[2016-11-06 07:24] LABS: MANUAL DIFF NO %
[2016-11-07 05:25] LABS: HEMATOCRIT 27.3 % (40.0-51.0); HEMOGLOBIN 8.9 g/dL (13.6-17.8); MEAN CORPUS HGB CONC 32.6 g/dL (32.0-36.0); MEAN CORPUSCULAR HEMOGLOB 27.9 pg (26.0-34.0); MEAN CORPUSCULAR VOLUME 85.6 fL (80-100); MEAN PLATELET VOLUME 7.5 fL (9.2-13.0); PLATELET COUNT 261 10/3/uL (150-400); RBC DISTRIBUTION WIDTH 13.7 % (12.0-16.0); RED CELL COUNT 3.19 10/6/uL (4.7-6.1)
[2016-11-07 05:26] LABS: MANUAL DIFF YES %; WHITE BLOOD CELLS 7.9 10/3/uL (4.5-10.5)
[2016-11-07 05:45] LABS: BUN (BLOOD UREA NITROGEN) 75 MG/DL (6-23); CALCIUM, SERUM 8.1 MG/DL (8.5-10.4); CHLORIDE, SERUM 103 MMOL/L (96-112); POTASSIUM, SERUM 5.9 MMOL/L (3.5-5.3); SODIUM, SERUM 134 MMOL/L (135-148)
[2016-11-07 05:48] LABS: CO2 (CARBON DIOXIDE) 22 MMOL/L (24-34); CREATININE 1.94 MG/DL (0.70-1.30); GFR AFRICAN AMERICAN 50 ML/MIN (>=60); GFR NON AFRICAN AMERICAN 43 ML/MIN (>=60); GLUCOSE, SERUM 129 MG/DL (60-99)
[2016-11-07 06:19] LABS: LYMPHOCYTES 9 %; LYMPHOCYTES ABSOLUTE (CALC) 0.71 10/3/uL (0.67-4.30); MONOCYTES 2 %; MONOCYTES ABSOLUTE (CALC) 0.16 10/3/uL (0.21-1.20); NEUTROPHILS ABSOLUTE (CALC) 7.03 10/3/uL (2.02-8.40); PLATELET ESTIMATE ADQ (ADEQUATE); SEGMENTED NEUTROPHIL (0) 89 %; TOTAL NUCLEATED CELLS 100
[2016-11-07 09:38] LABS: VANCOMYCIN TROUGH 21.1 MCG/ML (10.0-20.0)
[2016-11-09 06:22] LABS: BASOPHILS 1.4 %; BASOPHILS ABSOLUTE 0.08 10/3/uL (0.0-0.16); EOSINOPHILS 2.6 %; EOSINOPHILS ABSOLUTE 0.15 10/3/uL (0.0-0.53); HEMATOCRIT 24.7 % (40.0-51.0); HEMOGLOBIN 8.1 g/dL (13.6-17.8); IMMATURE GRANULOCYTES 0.3 %; IMMATURE GRANULOCYTES ABSOLUTE 0.02 10/3/uL (0.0-0.11); LYMPHOCYTES 35.5 %; LYMPHOCYTES ABSOLUTE 2.03 10/3/uL (0.67-4.30); MEAN CORPUS HGB CONC 32.8 g/dL (32.0-36.0); MEAN CORPUSCULAR HEMOGLOB 28.6 pg (26.0-34.0); MEAN CORPUSCULAR VOLUME 87.3 fL (80-100); MEAN PLATELET VOLUME 7.8 fL (9.2-13.0); MONOCYTES 7.9 %; MONOCYTES ABSOLUTE 0.45 10/3/uL (0.21-1.20); NEUTROPHILS 52.3 %; NEUTROPHILS ABSOLUTE 2.99 10/3/uL (2.02-8.40); PLATELET COUNT 253 10/3/uL (150-400); RBC DISTRIBUTION WIDTH 14.4 % (12.0-16.0); RED CELL COUNT 2.83 10/6/uL (4.7-6.1); WHITE BLOOD CELLS 5.7 10/3/uL (4.5-10.5)
[2016-11-09 06:31] LABS: MANUAL DIFF NO %
[2016-11-09 06:33] LABS: BUN (BLOOD UREA NITROGEN) 75 MG/DL (6-23); CALCIUM, SERUM 8.5 MG/DL (8.5-10.4); CHLORIDE, SERUM 105 MMOL/L (96-112); CO2 (CARBON DIOXIDE) 26 MMOL/L (24-34); CREATININE 1.61 MG/DL (0.70-1.30); GFR AFRICAN AMERICAN 63 ML/MIN (>=60); GFR NON AFRICAN AMERICAN 54 ML/MIN (>=60); POTASSIUM, SERUM 5.8 MMOL/L (3.5-5.3); SODIUM, SERUM 140 MMOL/L (135-148)
[2016-11-09 06:34] LABS: GLUCOSE, SERUM 96 MG/DL (60-99)
[2016-11-10 06:53] LABS: HEMATOCRIT 26.4 % (40.0-51.0); HEMOGLOBIN 8.6 g/dL (13.6-17.8); MEAN CORPUS HGB CONC 32.6 g/dL (32.0-36.0); MEAN CORPUSCULAR HEMOGLOB 28.7 pg (26.0-34.0); MEAN PLATELET VOLUME 7.5 fL (9.2-13.0); PLATELET COUNT 248 10/3/uL (150-400); RBC DISTRIBUTION WIDTH 14.2 % (12.0-16.0); WHITE BLOOD CELLS 6.7 10/3/uL (4.5-10.5)
[2016-11-10 06:55] LABS: MANUAL DIFF YES %
[2016-11-10 06:59] LABS: BUN (BLOOD UREA NITROGEN) 75 MG/DL (6-23); CALCIUM, SERUM 8.1 MG/DL (8.5-10.4); CHLORIDE, SERUM 104 MMOL/L (96-112); CO2 (CARBON DIOXIDE) 25 MMOL/L (24-34); CREATININE 1.81 MG/DL (0.70-1.30); GFR AFRICAN AMERICAN 55 ML/MIN (>=60); GFR NON AFRICAN AMERICAN 47 ML/MIN (>=60); GLUCOSE, SERUM 89 MG/DL (60-99); SODIUM, SERUM 136 MMOL/L (135-148)
[2016-11-10 07:01] LABS: POTASSIUM, SERUM 6.4 MMOL/L (3.5-5.3)
[2016-11-10 07:27] LABS: BAND NEUTROPHILS 1 %; BASOPHILS 1 %; BASOPHILS ABSOLUTE (CALC) 0.07 10/3/uL (0.0-0.16); LYMPHOCYTES 20 %; LYMPHOCYTES ABSOLUTE (CALC) 1.34 10/3/uL (0.67-4.30); MONOCYTES 5 %; MONOCYTES ABSOLUTE (CALC) 0.34 10/3/uL (0.21-1.20); NEUTROPHILS ABSOLUTE (CALC) 4.96 10/3/uL (2.02-8.40); PLATELET ESTIMATE ADQ (ADEQUATE); POLYCHROMASIA 1+ (2-5/OIF) (0-1/OIF); SEGMENTED NEUTROPHIL (0) 73 %; TOTAL NUCLEATED CELLS 100
[2016-11-10] MEDS ORDERED: ROXICODONE15 MG PO (09:08)
[2016-11-10] MEDS ORDERED: DEMA20 PO (09:09)
[2016-11-10] MEDS ORDERED: KADIANSR20 PO (09:09)
[2016-11-10] MEDS ORDERED: VANCO500 IV (09:17)
== END 2016-11-10 14:18 | disposition home health service (06) | DRG 264 ==
LOC: 5NO 09:32
PROVIDERS: Internal Medicine Nephrology; Nurse Practitioner; Nurse Practitioner Acute Care; Thoracic Surgery (Cardiothoracic Vascular Surgery)
PROC: 0W9B30Z Drainage of Left Pleural Cavity with Drainage Device, Percutaneous Approach (ICD-10-PCS; 2016-10-31)
PROC: B246ZZ4 Ultrasonography of Right and Left Heart, Transesophageal (ICD-10-PCS; 2016-11-02)
PROC: 3E0T3BZ Introduction of Anesthetic Agent into Peripheral Nerves and Plexi, Percutaneous Approach (ICD-10-PCS; 2016-11-06)
PROC: 0BJ08ZZ Inspection of Tracheobronchial Tree, Via Natural or Artificial Opening Endoscopic (ICD-10-PCS; 2016-11-06)
PROC: 0B938ZX Drainage of Right Main Bronchus, Via Natural or Artificial Opening Endoscopic, Diagnostic (ICD-10-PCS; 2016-11-06)
PROC: 0BDP4ZZ Extraction of Left Pleura, Percutaneous Endoscopic Approach (ICD-10-PCS; principal; 2016-11-06 11:00)
PROC: 0BBK8ZX Excision of Right Lung, Via Natural or Artificial Opening Endoscopic, Diagnostic (ICD-10-PCS; 2016-11-06 11:00)
PROC: 02HV33Z Insertion of Infusion Device into Superior Vena Cava, Percutaneous Approach (ICD-10-PCS; 2016-11-10)
PROC: 4A02X4A Measurement of Cardiac Electrical Activity, Guidance, External Approach (ICD-10-PCS; 2016-11-10)
DX: I33.0 Acute and subacute infective endocarditis (principal); I26.90 Septic pulmonary embolism without acute cor pulmonale; J86.9 Pyothorax without fistula; N17.9 Acute kidney failure, unspecified; J90 Pleural effusion, not elsewhere classified; F15.20 Other stimulant dependence, uncomplicated; E87.1 Hypo-osmolality and hyponatremia; B19.20 Unspecified viral hepatitis C without hepatic coma; Z87.891 Personal history of nicotine dependence; N18.2 Chronic kidney disease, stage 2 (mild); G89.4 Chronic pain syndrome; B95.61 Methicillin susceptible Staphylococcus aureus infection as the cause of diseases classified elsewhere
CPT/HCPCS: 32557; 36415; 36569; 71010; 71020; 71250; 73030-LT; 73060-LT; 80048; 80053; 80069; 80202; 82533; 82962; 83735; 84100; 84134; 85025; 85610; 86850; 86900; 86901; 86920; 87015; 87040; 87070; 87075; 87077; 87102; 87116; 87186; 87205; 87252; 93005; 93312; 93320; 93325; 94640; A9270-GY; C1751; J0690; J1170; J2250; J2370; J2405; J2710; J2795; J2997; J3010; J3370

== ENCOUNTER 2016-11-24 09:49 | Emergency (ER) | payer OTHER ==
[~2016-11-24 09:49] MED LIST: BACTRIM DS1 TAB PO; DEMA20 PO; IBU800 PO; KADIANSR20 PO; KLONO1 PO; ROXICODONE15 MG PO; VANCO500 IV; ZOFRAN4 PO
[2016-11-24 10:07] LABS: BASOPHILS 1.6 %; EOSINOPHILS 0.9 %; EOSINOPHILS ABSOLUTE 0.06 10/3/uL (0.0-0.53); ER CBC TAT 0 Hrs 03 Mins; HEMATOCRIT 26.7 % (40.0-51.0); HEMOGLOBIN 8.9 g/dL (13.6-17.8); IMMATURE GRANULOCYTES 0.2 %; IMMATURE GRANULOCYTES ABSOLUTE 0.01 10/3/uL (0.0-0.11); LYMPHOCYTES ABSOLUTE 1.21 10/3/uL (0.67-4.30); MEAN CORPUS HGB CONC 33.3 g/dL (32.0-36.0); MEAN CORPUSCULAR HEMOGLOB 28.9 pg (26.0-34.0); MEAN CORPUSCULAR VOLUME 86.7 fL (80-100); MEAN PLATELET VOLUME 8.4 fL (9.2-13.0); MONOCYTES 7.2 %; MONOCYTES ABSOLUTE 0.46 10/3/uL (0.21-1.20); NEUTROPHILS 71.1 %; NEUTROPHILS ABSOLUTE 4.53 10/3/uL (2.02-8.40); PLATELET COUNT 224 10/3/uL (150-400); RBC DISTRIBUTION WIDTH 14.6 % (12.0-16.0); RED CELL COUNT 3.08 10/6/uL (4.7-6.1); WHITE BLOOD CELLS 6.4 10/3/uL (4.5-10.5)
[2016-11-24 10:08] LABS: MANUAL DIFF NO %
[2016-11-24 10:21] LABS: A/G RATIO 0.5 (0.7-1.9); ALBUMIN 2.1 G/DL (3.5-5.0); ALKALINE PHOSPHATASE 71 U/L (45-117); BUN (BLOOD UREA NITROGEN) 14 MG/DL (6-23); CHLORIDE, SERUM 113 MMOL/L (96-112); CO2 (CARBON DIOXIDE) 24 MMOL/L (24-34); GFR AFRICAN AMERICAN 68 ML/MIN (>=60); GFR NON AFRICAN AMERICAN 59 ML/MIN (>=60); GLUCOSE, SERUM 92 MG/DL (60-99); POTASSIUM, SERUM 3.9 MMOL/L (3.5-5.3); SGOT(AST) 11 U/L (5-40); SGPT(ALT) 9 U/L (5-65); SODIUM, SERUM 145 MMOL/L (135-148); TOTAL BILIRUBIN 0.5 MG/DL (0-1.2); TOTAL PROTEIN 6.1 G/DL (6.0-8.5)
== END 2016-11-24 13:15 | disposition home or self-care (01) ==
LOC: ER 09:49
PROVIDERS: Hospitalist
DX: R60.0 Localized edema (principal); E11.22 Type 2 diabetes mellitus with diabetic chronic kidney disease; N18.9 Chronic kidney disease, unspecified; Z91.040 Latex allergy status; Z79.899 Other long term (current) drug therapy
CPT/HCPCS: 71010; 71275; 80053; 85025; 87040; 93005; 96374; 96375; 99284; J2405; Q9967